=== PATIENT | female | born 1980 | race Caucasian/White ===

== ENCOUNTER 2019-06-12 21:37 | Emergency (ER) | payer SELFPAY ==
[~2019-06-12] VITALS: Ht 167.6 cm; Wt 84.4 kg
[2019-06-12 21:52] VITALS: Ht 167.6 cm; Wt 84.4 kg
[2019-06-13 01:05] VITALS: BP 122/72
== END 2019-06-13 01:05 | disposition home or self-care (01) ==
LOC: ED 21:37
DX: J06.9 Acute upper respiratory infection, unspecified (principal); J98.01 Acute bronchospasm; F17.210 Nicotine dependence, cigarettes, uncomplicated; Z71.6 Tobacco abuse counseling
CPT/HCPCS: 87804; 99406; J7512; J7613; Q0092